=== PATIENT | female | born 1960 | race Caucasian/White ===

== ENCOUNTER 2016-09-18 15:35 | Emergency (ER) | payer OTHER ==
[~2016-09-18] VITALS: Ht 162.6 cm; Wt 63.0 kg
[~2016-09-18 15:35] MED LIST: ACET-1256 PO; ATV1 PO; MULT-506 PO; VITAMIN D PO; ZNTT/150 PO
[2016-09-18 15:37] VITALS: TEMP 36.4; Ht 162.6 cm; Wt 63.0 kg
[2016-09-18 16:25] LABS: URINE APPEARANCE CLOUDY (CLEAR); URINE COLOR DK YELLOW; URINE EPITHELIAL CELL AUTO >30 /lpf (0-5); URINE NITRITE NEG (NEG); URINE SPECIFIC GRAVITY 1.023 (1.000-1.030); UROBILINOGEN NEG (NEG); ZZUR CULT IF INDIC CLEAN CATCH YES
[2016-09-18 16:29] LABS: MANUAL MICROSCOPIC REQUIRED? NO; REVIEW REQ? NO; URINE BILIRUBIN NEG (NEG)
[2016-09-18 16:50] LABS: BASO % 0.9 %; BASO ABS # 0.05 K/uL (0-0.2); COMPLETE YES; EOS % 1.4 %; HEMATOCRIT 43.6 % (37-47); IG% 0.2 %; LYMPH % 35.9 %; LYMPH ABS # 2.08 K/uL (1.2-3.4); MEAN CELL VOLUME 92.4 fL (80-100); MEAN CORPUSCULAR HEMOGLOBIN 32.4 pg (25-34); MEAN CORPUSCULAR HGB CONC 35.1 g/dl (32-36); MEAN PLATELET VOLUME 8.9 fL (7.4-10.4); MONO % 5.7 %; NEUT % 55.9 %; PLATELET COUNT 347 K/uL (130-400); RED BLOOD COUNT 4.72 M/uL (4.2-5.4)
[2016-09-18 17:08] LABS: BUN/CREATININE RATIO 5.5 (10-20); CALCIUM 9.2 mg/dl (8.5-10.1); CREATININE 0.77 mg/dl (0.60-1.20); POTASSIUM 3.7 mmol/L (3.5-5.1)
[2016-09-18 19:06] VITALS: BP 117/60; PULSE 67; O2SAT 98
[2016-09-18] MEDS ORDERED: SULF800T23 PO (19:06)
[2016-09-18] MEDS ORDERED: PHEN-876 PO (19:06)
--- NOTE | 2016-09-18 19:08 | EMERGENCY ROOM VISIT NOTE ---
History First contact with patient: 15:52 Chief Complaint: URINARY SYMPTOMS Stated Complaint: SUSPECTED UTI History of Present Illness The patient is a 56 year old female who presents to the Emergency Room with complaints of urinary symptoms. The patient states that for the past 2 days, she has had low back pain, nausea and urinary symptoms. She states that she has had decreased frequency of urination but denies any other urinary symptoms. She reports pain in her left lower back. 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 She reports a previous UTI but denies any history of kidney stones or kidney infections. She denies any fevers/chills, changes in bowel movements, fevers or vomiting. Review of Systems A complete 10 point review of systems was reviewed with the patient with pertinent positives and negatives as per history of present illness. All else were negative. Past Medical/Surgical History Medical Problems: (1) Right flank pain Surgical Problems: (1) History of appendectomy (2) History of hysterectomy (3) History of tubal ligation Family History Other digestive disorders Other kidney diseases Social History Smoking Status: Current Every Day Smoker Alcohol Use: none Marital Status: Housing Status: lives with family Occupation Status: employed Current/Historical Medications Scheduled Lorazepam (Ativan *), 1 MG PO TID Multivitamin (Multivitamin), 1 TAB PO QAM Phenazopyridine HCl (Pyridium), 200 MG PO TID Ranitidine (Zantac), 150 MG PO QAM Sulfa/Trimethoprim (Bactrim Ds 800MG/160MG), 1 TAB PO BID Allergies Coded Allergies: No Known Allergies (Verified , 09/18/16) Physical Exam Vital Signs Date Time Temp Pulse Resp B/P Pulse Ox O2 Delivery O2 Flow Rate FiO2 09/18/16 19:06 67 18 117/60 98 Room Air 09/18/16 16:40 57 18 123/76 98 Room Air 09/18/16 15:37 36.4 79 16 116/69 97 Room Air Physical Exam VITALS: Vitals are noted on the nurse's note and reviewed by myself. Vital signs stable. GENERAL: This is a 56-year-old female, in no acute distress, nondiaphoretic, well-developed well-nourished. SKIN: Capillary reflex less than 2 seconds. HEENT: Normocephalic. PERRLA. EOMI. Nares patent. Mucous membranes moist. Neck is supple without nuchal rigidity. HEART: Regular rate and rhythm without murmurs gallops or rubs. LUNGS: Clear to auscultation bilaterally without wheezes, rales or rhonchi. ABDOMEN: Positive bowel sounds x 4. Soft, no tenderness to palpation. MUSCULOSKELETAL: There is mild tenderness to palpation of the left lower back. No CVA tenderness. NEURO: Patient was alert and oriented to person place and time. Medical Decision & Procedures ER Provider Diagnostic Interpretation: RENAL ULTRASOUND HISTORY: left flank pain, urinary sxs COMPARISON: Abdomen and pelvis CT 01/28/2014. FINDINGS: There is again noted a horseshoe kidney. No renal stones or hydronephrosis. Normal corticomedullary differentiation and cortical thickness. Bladder is not well-distended but appears unremarkable. IMPRESSION: Horseshoe kidney. No renal stones or hydronephrosis. Laboratory Results 09/18/16 16:40 Red Blood Count 4.72, Mean Corpuscular Volume 92.4, Mean Corpuscular Hemoglobin 32.4, Mean Corpuscular Hemoglobin Concent 35.1, Mean Platelet Volume 8.9, Neutrophils (%) (Auto) 55.9, Lymphocytes (%) (Auto) 35.9, Monocytes (%) (Auto) 5.7, Eosinophils (%) (Auto) 1.4, Basophils (%) (Auto) 0.9, Neutrophils # (Auto) 3.25, Lymphocytes # (Auto) 2.08, Monocytes # (Auto) 0.33, Eosinophils # (Auto) 0.08, Basophils # (Auto) 0.05 09/18/16 16:40 Test 09/18/16 15:55 09/18/16 16:40 Urine Color DK YELLOW Urine Appearance CLOUDY (CLEAR) Urine pH 5.0 (4.5-7.5) Urine Specific [place] 1.023 (1.000-1.030) Urine Protein NEG (NEG) Urine Glucose (UA) NEG (NEG) Urine Ketones TRACE (NEG) Urine Occult Blood TRACE (NEG) Urine Nitrite NEG (NEG) Urine Bilirubin NEG (NEG) Urine Urobilinogen NEG (NEG) Urine Leukocyte Esterase TRACE (NEG) Urine WBC (Auto) 1-5 /hpf (0-5) Urine RBC (Auto) 10-30 /hpf (0-4) Urine Hyaline Casts (Auto) 10-30 /lpf (0-5) Urine Epithelial Cells (Auto) >30 /lpf (0-5) Urine Bacteria (Auto) 1+ (NEG) White Blood Count 5.80 K/uL (4.8-10.8) Red Blood Count 4.72 M/uL (4.2-5.4) Hemoglobin 15.3 g/dL (12.0-16.0) Hematocrit 43.6 % (37-47) Mean Corpuscular Volume 92.4 fL (80-100) Mean Corpuscular Hemoglobin 32.4 pg (25-34) Mean Corpuscular Hemoglobin Concent 35.1 g/dl (32-36) Platelet Count 347 K/uL (130-400) Mean Platelet Volume 8.9 fL (7.4-10.4) Neutrophils (%) (Auto) 55.9 % Lymphocytes (%) (Auto) 35.9 % Monocytes (%) (Auto) 5.7 % Eosinophils (%) (Auto) 1.4 % Basophils (%) (Auto) 0.9 % Neutrophils # (Auto) 3.25 K/uL (1.4-6.5) Lymphocytes # (Auto) 2.08 K/uL (1.2-3.4) Monocytes # (Auto) 0.33 K/uL (0.11-0.59) Eosinophils # (Auto) 0.08 K/uL (0-0.5) Basophils # (Auto) 0.05 K/uL (0-0.2) RDW Standard Deviation 44.8 fL (36.4-46.3) RDW Coefficient of Variation 13.1 % (11.5-14.5) Immature Granulocyte % (Auto) 0.2 % Immature Granulocyte # (Auto) 0.01 K/uL (0.00-0.02) Anion Gap 7.0 mmol/L (3-11) Est Creatinine Clear Calc Drug Dose 70.5 ml/min Estimated GFR () 100.0 Estimated GFR (Non- 86.3 BUN/Creatinine Ratio 5.5 (10-20) Calcium Level 9.2 mg/dl (8.5-10.1) Medications Administered Medications (Trade) Dose Ordered Sig/Rodger Route Start Time Stop Time Status Last Admin Dose Admin Phenazopyridine HCl (Phenazopyridine HCl 200MG Home Pack) 1 homepack UD ONCE PO 09/18/16 19:15 09/18/16 19:16 DC 09/18/16 19:30 1 HOMEPACK Trimethoprim/ Sulfamethoxazole (Sulfameth/ Trimeth Ds 800/ 160MG Home Pack) 1 homepack UD ONCE PO 09/18/16 19:15 09/18/16 19:16 DC 09/18/16 19:30 1 HOMEPACK Medical Decision Differential diagnosis includes urinary tract infection, vaginal infection, pyelonephritis, among others. The patient is a 56-year-old female who presents today complaining of nausea, urinary symptoms and left back pain. Labs revealed no leukocytosis, anemia or concerning electrolyte abnormalities. Urinalysis was suggestive of infection versus contamination and will be sent for culture. Given the patient's symptoms , she will be placed on Bactrim for a suspected UTI pending the culture results. She was instructed to follow-up with her primary care provider this week for a recheck. Based on the patient's presentation and work up, I feel the patient is stable for outpatient treatment. The patient was educated to return to the emergency department for any worsening of their current condition or new/concerning symptoms. She will follow up with her primary care provider or return here for worsening symptoms. Impression Primary Impression: Urinary tract infection Departure Information Dispostion Home / Self-Care Condition GOOD Prescriptions Phenazopyridine HCl (Pyridium) 200 Mg Tab 200 MG PO TID for 2 Days, #6 TAB Prov: Tatyana Choi PA-C 09/18/16 Sulfa/Trimethoprim (Bactrim Ds 800MG/160MG) Tab 1 TAB PO BID for 6 Days, #12 TAB Prov: Tatyana Choi PA-C 09/18/16 Referrals Shankar Randhawa D.O.[facility] (PCP) Patient Instructions My [facility] Additional Instructions You have been treated in the Emergency Department for a Urinary Tract Infection (UTI). You have been prescribed Bactrim to be taken twice daily for a total of 7 days. This is an antibiotic. All antibiotics have the potential to cause diarrhea. Stop this medication and contact a medical provider if you were to develop any significant adverse side effects including: wheezing, shortness of breath, passing out, vomiting, or a diffuse rash. Always take antibiotics as directed and COMPLETE the ENTIRE course regardless of the improvement of your symptoms. You have been prescribed Pyridium to be taken as prescribed. This medicine will help with the urinary symptoms that you have been experiencing. Be aware that Pyridium may turn your urine a red-orange or brown color. This effect is harmless. Drink plenty of water and stay well hydrated. As with any trip to the Emergency Department, you should follow-up with your Primary Care Provider from today's visit. Return to the emergency department if your symptoms persist despite treatment plan outlined above or if the following symptoms occur: increased fevers, chills , low back pain, nausea/vomiting, or blood in your urine.
[2016-09-18] MEDS ORDERED: SEPTRA DS HOME PACK 1 EA VIAL PO ONE (19:15)
[2016-09-18] MEDS ORDERED: PHENAZOPYRIDINE HOME PACK 200 MG VIAL PO ONE (19:15)
--- NOTE | 2016-09-18 19:29 | DIAGNOSTIC IMAGING REPORT ---
RENAL ULTRASOUND HISTORY: left flank pain, urinary sxs COMPARISON: Abdomen and pelvis CT 01/28/2014. FINDINGS: There is again noted a horseshoe kidney. No renal stones or hydronephrosis. Normal corticomedullary differentiation and cortical thickness. Bladder is not well-distended but appears unremarkable. IMPRESSION: Horseshoe kidney. No renal stones or hydronephrosis. Electronically signed by: Gopal Moreno M.D. 09/18/2016 7:27 PM Dictated Date/Time: 09/18/2016 6:10 PM
== END 2016-09-18 19:33 | disposition home or self-care (01) ==
LOC: C.EDB 15:36 → C.EDC 19:33
DX: N39.0 Urinary tract infection, site not specified (principal); Q60.0 Renal agenesis, unilateral; Z79.899 Other long term (current) drug therapy; Z87.440 Personal history of urinary (tract) infections; Z83.79 Family history of other diseases of the digestive system; Z84.1 Family history of disorders of kidney and ureter; F17.200 Nicotine dependence, unspecified, uncomplicated

== ENCOUNTER → 2017-06-29 | Outpatient (CLI) | payer OTHER ==
[~2017-06-29] MED LIST changes: -ACET-1256 PO; +RANI150T85 PO; -VITAMIN D PO; -ZNTT/150 PO
[2017-06-29 17:14] LABS: BLOOD UREA NITROGEN 7 mg/dl (7-18); GLUCOSE 87 mg/dl (70-99)
[2017-06-29 17:15] LABS: ALBUMIN 4.1 gm/dl (3.4-5.0); ALKALINE PHOSPHATASE 97 U/L (45-117); ALT/SGPT 20 U/L (12-78); AST/SGOT 15 U/L (15-37); CALCIUM 9.3 mg/dl (8.5-10.1); CARBON DIOXIDE 26 mmol/L (21-32); CHOLESTEROL 192 mg/dl (0-200); LDL CHOLESTEROL CALCULATED 113 mg/dl; POTASSIUM 3.3 mmol/L (3.5-5.1); SODIUM 135 mmol/L (136-145); TOTAL PROTEIN 7.5 gm/dl (6.4-8.2)
== END | disposition home or self-care (01) ==
LOC: C.LABBC 15:07
PROVIDERS: ATTEND Nurse Practitioner Adult Health
DX: E04.1 Nontoxic single thyroid nodule (principal); E55.9 Vitamin D deficiency, unspecified; F17.200 Nicotine dependence, unspecified, uncomplicated